=== PATIENT | female | born 1960 | race Caucasian/White ===

== ENCOUNTER 2016-08-02 05:48 | Day surgery (SDC) | payer OTHER ==
[~2016-08-02] VITALS: Ht 152.4 cm; Wt 66.0 kg
[2016-08-02 07:21] VITALS: Ht 152.4 cm; Wt 66.0 kg
[2016-08-02] MEDS ORDERED: glipizide (07:35)
[2016-08-02] MEDS ORDERED: januvia (07:40)
[2016-08-02] MEDS ORDERED: hydro (07:40)
[2016-08-02] MEDS ORDERED: metformin (07:40)
[2016-08-02] MEDS ORDERED: benazepril (07:40)
[2016-08-02] MEDS ORDERED: propranolol (07:40)
[2016-08-02] MEDS ORDERED: premarin (07:40)
[2016-08-02] MEDS ORDERED: lorazepam (07:40)
[2016-08-02 07:53] VITALS: BP 174/77; PULSE 57; RESP 19
[2016-08-02] MEDS ORDERED: MIDAZOLAM 1 MG/ML 2 ML INJ ONE ×2 (09:08)
[2016-08-02] MEDS ORDERED: FENTAnyl 50 MCG/ML VIAL ONE (09:08)
[2016-08-02 09:18] VITALS: BP 114/80; PULSE 58; RESP 18
[2016-08-02 09:50] VITALS: BP 124/57; PULSE 54; RESP 18
--- NOTE | 2016-08-02 11:12 | GILP ---
DATE OF PROCEDURE: 08/02/2016 INDICATION: A 56-year-old female undergoing this procedure for colon cancer screening. The risks o f the procedure, related and unrelated complications, anesthetic risk, alternatives discussed. Info rmed consent was obtained. DESCRIPTION OF PROCEDURE: The patient was brought to the GI lab, sedated with Versed 3 mg, fentanyl 100 mg and after optimal sedation, scope was passed with much ease into rectum, advanced through si gmoid, descending, transverse colon all the way into cecum. The cecum was 10% to 15% filled with st ool in the presacral area. There was a large polyp 2 cm in diameter identified. The polyp was in b etween and behind the fold. The preparation was somewhat inadequate, but the site near the polyp wa s thoroughly clean. The polyp was 2 to 2.5 cm in diameter and we successfully lifted the polyp and hot snare polypectomy done. Polyp was retrieved with a [place] basket. The base of the polyp appeared slightly deeper than normal so endoclip was successfully deployed. The polyp was then successfully deployed. The [place] basket was used to retrieve the polyp and this was done after Endo clipping the base of the polyp. The polyp and the scope were then successfully removed. Polyp was sent for atul lysis. Preparation was inadequate at some places. There was solid stool, sticky stool was seen throughout the colon covering the mucosal lining. IMPRESSION: 1. 2.5 cm polyp successfully removed by hot snare polypectomy. 2. Endoclip deployed at the base of the polyp to prevent perforation. 3. Still there was small tissue found at the base of the polyp which needs to be the re-evaluated a fter 6 months and with a saline lift we can remove that part of the polyp if the biopsy comes negati ve for the cancer. The patient also definitely needs a colonoscopy since the colon was inadequately prepared. Dictated By: SRAVANI LESLIE/NTS Conf#: [id number] DID#: [id number] CC: Hamlet RAY;*EndCC*
== END 2016-08-02 11:00 | disposition home or self-care (01) ==
LOC: GIL 05:48 → SDS 05:48
PROVIDERS: ATTEND Internal Medicine Gastroenterology
DX: Z12.11 Encounter for screening for malignant neoplasm of colon (principal); D12.2 Benign neoplasm of ascending colon; I10 Essential (primary) hypertension; E11.9 Type 2 diabetes mellitus without complications
CPT/HCPCS: 45380; 82962; 88305; J2250; J3010